=== PATIENT | male | born 1950 | race Caucasian/White ===

== ENCOUNTER 2018-04-23 07:53 | Outpatient (CLI) | payer MEDICARE ==
--- NOTE | 2018-04-23 09:26 | RAD ---
LUMBAR SPINE THREE VIEWS: Indication: Low back pain with lumbar radicular pain. Comparison: None. FINDINGS: There is retrolisthesis of the suspected L3 on L4 level of 8 mm that does not reduce with flexion. Th is does not appear to accentuate with extension. Advanced disc degenerative disease at L3-4 and L4-5. There is mild facet osteoarthrosis at L3-4 through L5-S1. No acute fracture is evident. IMPRESSION: Moderate spondylosis of the lumbar spine with retrolisthesis of L3 on L4. No abnormal translational m otion is demonstrated. POS: [facility]
--- NOTE | 2018-04-23 09:52 | MRI ---
MRI OF THE LUMBAR SPINE WITHOUT CONTRAST: INDICATION: Low back pain with radicular pain. COMPARISON: None. FINDINGS: There is retrolisthesis of L3 on L4. Conus is seen to terminate at the expected L1 vertebral level. There are mild Modic end plate degenerative changes at L3-4 and L4-5. Visualized retroperitoneum and paravertebral soft tissues appear within normal limits. At L5-S1, there is mild facet joint degenerative change and a broad-based bulge. There is no appreci able central canal or neural foraminal narrowing. At L4-5, there is a broad-based bulge with moderate to severe facet joint degenerative change and los s of disk space height inducing mild to moderate right and mild left neural foraminal narrowing. At L3-4, the retrolisthesis, broad-based bulge, and moderate facet joint degenerative change induces mild to moderate right and mild left neural foraminal narrowing. At L2-3, there is a broad-based bulge with mild facet joint degenerative, but no appreciable central canal or neural foraminal narrowing. At L1-2, there is mild facet joint degenerative change and a broad-based bulge, but no appreciable ce ntral canal or neural foraminal narrowing. At T12-L1, there is no appreciable central canal or neural foraminal narrowing. IMPRESSION: Moderate spondylosis of the lumbar spine most pronounced at L3-4 and L4-5 as detailed above. POS: [facility]
== END 2018-04-23 07:54 | disposition home or self-care (01) ==
LOC: SCSMRI 07:53
PROVIDERS: ATTEND Nurse Practitioner Family
DX: M47.26 Other spondylosis with radiculopathy, lumbar region (principal); M43.16 Spondylolisthesis, lumbar region
CPT/HCPCS: 72100; 72148